=== PATIENT | male | born 1980 | race Caucasian/White ===

== ENCOUNTER 2017-12-12 10:45 | Emergency (ER) | payer OTHER, MEDICAID, SELFPAY ==
[2017-12-12 10:53] VITALS: BP 142/95; PULSE 101; RESP 19; TEMP 36.7; O2SAT 95
--- NOTE | 2017-12-12 11:12 | ED.SEIZURE ---
HPI - Seizure General Chief Complaint: Seizure Stated Complaint: Seizure Time Seen by Provider: 12/12/17 10:51 Source: patient, family and EMS Mode of arrival: EMS Limitations: no limitations History of Present Illness HPI Narrative: Patient is a 37-year-old male here for evaluation of seizure-like activity. Patient's mother who is at bedside stated that they have been on a cramping both for the past 3 days. She states that this morning the patient was standing on the boat and had a sudden episode where his eyes rolled back in his head and he slumped over and had shaking like activity. She states that it lasted approximately 4 min. No loss of bowel or bladder. She states that the patient was confused afterwards. EMS was called who transported him to the emergency department. No prior history of seizures. No reports of trauma. Patient states he does not remember the event. Review of Systems Review of Systems Provided by patient's mother who is at bedside and also the patient. Constitutional Denies headache(s) ENT Ears, Nose, Mouth, and Throat: Denies headache(s) Cardiovascular Denies chest pain, Reports syncope and Denies dyspnea Respiratory Denies dyspnea Musculoskeletal Reports myalgias, Denies numbness and Reports stiffness Neurologic Reports behavioral changes, Reports syncope, Denies headache(s), Denies numbness, Reports convulsions and Reports seizure-like activity Psychiatric Reports behavioral changes Hematologic/Lymphatic Denies easy bleeding and Denies easy bruising [facility] Social History Smoking Status: Current every day smoker Comment: Reviewed patient's past medical history surgical history social history and Family history Patient states that he drinks occasionally. 2-3 beers at a time. Not every day. Exam Initial Vital Signs Initial Vital Signs: Vital Signs Temperature 98.1 F 12/12/17 10:53 Pulse Rate 101 H 12/12/17 10:53 Respiratory Rate 19 12/12/17 10:53 Blood Pressure 142/95 H 12/12/17 10:53 Pulse Oximetry 95 12/12/17 10:53 Const General: cooperative, healthy appearing, comfortable, well developed, well groomed and No acute distress Orientation: alert, awake and oriented x3 HENMT Head: normal to inspection, normocephalic and atraumatic Resp Effort & Inspection: normal respiratory effort Auscultation: clear to auscultation bilaterally Cardio Rate: regular rate Rhythm: regular rhythm Pulses: radial pulses present GI Inspection: normal to inspection and non-distended Palpation: soft, No firm and No tender Back/Spine/Pelvis Cervical Spine: No step off deformity and No cervical ROM abnormal Skin Lesions: no lesions Rashes: no rashes Neuro General: alert, awake and oriented x3 Cognition: normal cognition Speech: speech normal Motor: muscle tone normal throughout Sensory Exam: no sensory deficits noted Extrem General: normal to inspection, full ROM and capillary refill normal Psych Appearance: grossly normal and well kempt Course Orders Ordered: ED Orders 12/12/17 11:05 Complete Blood Count AUTO DIFF Stat Comprehensive Metabolic Panel Stat Ethanol (ETOH) Stat Magnesium Stat Phosphorous Stat Prolactin Stat 12/12/17 11:22 CT head/brain wo con Stat Sodium Chloride (Normal Saline 0.9%) 1,000 mls @ 1,000 mls/hr IV BOLUS ONE Stop: 12/12/17 12:22 Last Admin: 12/12/17 11:30 Dose: 1,000 mls/hr Vital Signs - 8 hr 12/12/17 10:53 12/12/17 11:35 12/12/17 12:00 Temperature 98.1 F Pulse Rate 101 H 86 85 Respiratory Rate 19 17 14 Blood Pressure 142/95 H Blood Pressure [Right Arm] 134/86 H 137/87 H Pulse Oximetry 95 99 98 MDM - Seizure Lab Data Attestation: I reviewed the patient's lab results. Result diagrams: 12/12/17 11:05 12/12/17 11:05 Lab Results 12/12/17 12/12/17 Range/Units 11:05 11:05 WBC 7.8 (4.5-11.0) X10^3/uL RBC 4.52 (4.5-5.9) X10^6/uL Hgb 15.3 (13.5-17.5) g/dL Hct 43.4 (41-53) % MCV 96.0 (80-100) fL MCH 33.8 (26-34) PG MCHC 35.2 (30-36) % RDW 12.9 (11.6-14.8) % Plt Count 210 (150-400) X10^3/uL Neut % (Auto) 79.0 H (50-75) % Lymph % (Auto) 12.7 L (25-40) % [place] % (Auto) 8.0 (3-14) % Eos % (Auto) 0.1 L (2-4) % Baso % (Auto) 0.2 (0-2) % Neut # (Auto) 6200 H (7413-5561) /uL Sodium 140 (137-145) mmol/L Potassium 4.1 (3.4-5.1) mmol/L Chloride 103 (98-107) mmol/L Carbon Dioxide 25 (22-32) mmol/L BUN 14 (9-20) mg/dL Creatinine 0.90 (0.66-1.25) mg/dL Estimated GFR > 60.0 (>60) mL/min BUN/Creatinine Ratio 15.6 (6-22) Glucose 113 H (70-100) mg/dL Calcium 10.0 (8.4-10.2) mg/dL Phosphorus 2.4 L (2.5-4.5) mg/dL Magnesium 2.3 (1.6-2.3) mg/dL Total Bilirubin 1.4 H (0.2-1.3) mg/dL AST 51 (17-59) IU/L ALT 37 (21-72) IU/L Alkaline Phosphatase 67 (38-126) U/L Total Protein 7.9 (6.3-8.2) g/dL Albumin 4.6 (3.5-5.0) g/dL Globulin 3.3 (1.7-4.1) g/dL Albumin/Globulin Ratio 1.4 (1.0-2.8) Prolactin 21.8 H (3.7-17.9) ng/mL Ethyl Alcohol < 10 mg/dL Imaging Data CT scan - head: Radiologist's impression: PROCEDURE: CT HEAD/BRAIN WO CON INDICATIONS: New onset seizure TECHNIQUE: Noncontrast 4.5 mm thick angled axial sections acquired from the foramen magnum to the vertex, with coronal and sagittal reformats. For radiation dose reduction, the following was used: automated exposure control, adjustment of mA and/or kV according to patient size. COMPARISON: None. FINDINGS: Image quality: Excellent. CSF spaces: Basal cisterns are patent. No extra-axial fluid collections. Ventricles are normal in size and shape. Brain: No midline shift. No intracranial masses or hemorrhage. Wick-white matter interface is normal. Skull and face: Calvarium and visualized facial bones are intact, without suspicious lesions. Sinuses: Visualized sinuses and mastoids are clear. IMPRESSION: No acute intracranial disease process. Dictated by: Tessie Arnold MD, PhD on 12/12/2017 at 12:05 Approved by: Tessie Arnold MD, PhD on 12/12/2017 at 12:06 [facility] Narrative Medical decision making narrative: Patient with a history that is consistent with a seizure. Also has an elevated prolactin level. Has no trauma seen from the event. There was some concern from the patient's mother that this could potentially be an alcohol withdrawal seizure. She states that the patient has not had anything to drink for the past 3 days. Patient states that he has never withdrawn from alcohol in the past and has never had a seizure from alcohol in the past. He denies that he has an alcohol problem. He states that he has ?shakes? all the time which he does not attribute alcohol. Patient was alert and oriented at the time of my evaluation. We did discuss return precautions. We discussed the importance of him following up with his primary doctor to discuss the indications to see Neurology. He expressed understanding and agreement with plan Discharge Plan Departure Patient Disposition: Home, Self-Care Clinical Impression: Seizure-like activity Instructions: DI for Seizure (Not Epilepsy/Seizure Disorder) Activity Restrictions/Additional Instructions: Recommend that when you return home you contact your primary care doctor to discuss the symptoms that brought you to the emergency department today. Return to the emergency department if you have any new symptoms or return of the seizure-like activity.
--- NOTE | 2017-12-12 11:22 | DI.CT.S_ITS ---
PROCEDURE: CT HEAD/BRAIN WO CON INDICATIONS: New onset seizure TECHNIQUE: Noncontrast 4.5 mm thick angled axial sections acquired from the foramen magnum to the vertex, with coronal and sagittal reformats. For radiation dose reduction, the following was used: automated exposure control, adjustment of mA and/or kV according to patient size. COMPARISON: None. FINDINGS: Image quality: Excellent. CSF spaces: Basal cisterns are patent. No extra-axial fluid collections. Ventricles are normal in size and shape. Brain: No midline shift. No intracranial masses or hemorrhage. Wick-white matter interface is normal. Skull and face: Calvarium and visualized facial bones are intact, without suspicious lesions. Sinuses: Visualized sinuses and mastoids are clear. IMPRESSION: No acute intracranial disease process. Dictated by: Tessie Arnold MD, PhD on 12/12/2017 at 12:05 Approved by: Tessie Arnold MD, PhD on 12/12/2017 at 12:06
[2017-12-12 11:29] LABS: Add Manual Diff / Slide Review NO; Basophils Percent Auto 0.2 % (0-2); Eosinophils Percent Auto 0.1 % (2-4); Hematocrit 43.4 % (41-53); Hemoglobin 15.3 g/dL (13.5-17.5); Lymphocytes Percent Auto 12.7 % (25-40); Mean Corpuscular HGB Conc 35.2 % (30-36); Mean Corpuscular Hemoglobin 33.8 PG (26-34); Neutrophils Absolute Auto 6200 /uL (3000-5900); Platelet Count 210 X10^3/uL (150-400); Red Blood Cell Count 4.52 X10^6/uL (4.5-5.9); Red Cell Distribution Width 12.9 % (11.6-14.8); White Blood Cell Count 7.8 X10^3/uL (4.5-11.0)
[2017-12-12] MEDS: SODIUM CHLORIDE 0.9% 1,000 ML 1000 ML IV (11:30)
[2017-12-12 11:35] VITALS: BP 134/86; PULSE 86; RESP 17; O2SAT 99
[2017-12-12 11:35] LABS: Alanine Aminotransferase 37 IU/L (21-72); Albumin 4.6 g/dL (3.5-5.0); Albumin Globulin Ratio 1.4 (1.0-2.8); Alkaline Phosphatase 67 U/L (38-126); Aspartate Aminotransferase 51 IU/L (17-59); BUN Creatinine Ratio 15.6 (6-22); Bilirubin Total 1.4 mg/dL (0.2-1.3); Blood Urea Nitrogen 14 mg/dL (9-20); Carbon Dioxide 25 mmol/L (22-32); Chloride 103 mmol/L (98-107); Estimated Glomerular Filt Rate > 60.0 mL/min (>60); Ethanol (ETOH) < 10 mg/dL; Globulin 3.3 g/dL (1.7-4.1); Glucose 113 mg/dL (70-100); HEMOLYSIS < 15 (0-50); Magnesium 2.3 mg/dL (1.6-2.3); Phosphorous 2.4 mg/dL (2.5-4.5); Potassium 4.1 mmol/L (3.4-5.1); Sodium 140 mmol/L (137-145); Total Protein 7.9 g/dL (6.3-8.2)
[2017-12-12 11:51] LABS: Prolactin 21.8 ng/mL (3.7-17.9)
[2017-12-12 12:00] VITALS: BP 137/87; PULSE 85; RESP 14; O2SAT 98
[2017-12-12 12:26] VITALS: BP 140/97; PULSE 76; RESP 21; O2SAT 99
== END 2017-12-12 12:35 | disposition home or self-care (01) ==
PROVIDERS: Emergency Provider Emergency Medicine
DX: R56.9 Unspecified convulsions (principal)
CPT/HCPCS: 36591; 70450; 80053; 80320; 83735; 84100; 84146; 85025; 93041; 96360; 99283; 99285